=== PATIENT | male | born 1995 | race African-American/Black ===

== ENCOUNTER 2024-03-25 11:56 | Emergency (ER) | payer SELFPAY ==
--- NOTE | ~2024-03-25 | XR_ITS ---
XR chest 1V portable Ordering provider: Lauri Paige MD History: 28 years Male with . Dysnea . Comparison: None. FINDINGS: MEDIASTINUM: The cardiac silhouette is not enlarged. LUNGS: No infiltrates, effusions or pneumothorax. OTHER: No free air under the diaphragm. IMPRESSION: No acute cardiopulmonary pathology. Reviewed, dictated and finalized at location A.
[2024-03-25 12:01] VITALS: BP 138/74; PULSE 107; RESP 20; TEMP 36.7; O2SAT 100
[2024-03-25] MEDS: FAMOTIDINE 20 MG/2 ML VIAL IV PUSH (13:24)
[2024-03-25] MEDS: MAG HYDROX/AL HYDROX/SIMETH 30 ML UDC PO (13:24)
[2024-03-25 13:32] LABS: Basophils Absolute Auto 0.1 K/mm3 (0.0-0.1); Basophils Percent Auto 0.4 % (0.2-1.2); Eosinophils Percent Auto 0.2 % (0-4.4); Hemoglobin 13.9 g/dL (14.0-18.0); Immature Granulocyte Absolute 0.06 K/mm3 (0.00-0.031); Immature Granulocyte Percent A 0.4 % (0-0.5); Lymphocytes Absolute Auto 1.71 K/mm3 (0.9-3.2); Lymphocytes Percent Auto 12.5 % (18.3-44.2); Mean Corpuscular HGB Conc 33.9 g/dl (32-36); Mean Corpuscular Hemoglobin 26.9 pg (26-34); Mean Corpuscular Volume 79.5 fl (80-100); Mean Platelet Volume 10.4 fl (7.4-10.4); Monocytes Absolute Auto 1.4 K/mm3 (0.1-0.6); Neutrophils Absolute Auto 10.5 K/mm3 (1.3-6.7); Neutrophils Percent Auto 76.5 % (45.5-73.1); Platelet Count Result 210 k/mm3 (150-375); Red Blood Count 5.16 M/mm3 (4.6-6.20); Red Cell Distribution Width 13.6 % (11.5-14.5); White Blood Count 13.7 K/mm3 (4.5-10.0)
[2024-03-25 13:33] LABS: Alanine Aminotransferase 21 U/L (6-50); Albumin Level 4.6 g/dL (3.5-5.1); Alkaline Phosphatase 57 U/L (38-126); Anion Gap 7 mmol/L (4-12); Aspartate Amino Transferase 27 U/L (17-59); Bilirubin,Total 1.4 mg/dL (0.2-1.3); Blood Urea Nitrogen 12 mg/dL (9-20); Calcium 9.5 mg/dL (8.4-10.2); Carbon Dioxide 29 mmol/L (22-30); Chloride 101 mmol/L (98-107); Estimated CRCL calculation 97 ml/min; Estimated Glomerular Filt Rate > 60; Glucose 96 mg/dL (65-110); Lipase 30 U/L (23-300); Potassium 3.6 mmol/L (3.4-5.0); Sodium 137 mmol/L (137-145)
--- NOTE | 2024-03-25 13:47 | ED.GENADULT ---
HPI - General Adult General Chief complaint: Abdominal Pain Stated complaint: dan/abd pain Time Seen by Provider: 03/25/24 12:34 History of Present Illness HPI narrative: This is a 28-year-old male presenting ED with epigastric pain. The patient has daily epigastric pain in the morning that improves after he eats. This morning while driving to work would not anemia. He started develop is normal epigastric pain is worse than usual. He then became very anxious and started having trouble breathing and tingling in his hands and feet. That time he pulled over called an ambulance and was brought to the hospital. Currently the patient is asymptomatic. Patient states he thinks that he had a panic attack. Patient is declining any medication for anxiolysis. Related Data Allergies Allergy/AdvReac Type Severity Reaction Status Date / Time No Known Allergies Allergy Verified 03/25/24 13:16 Exam Narrative: APPEARANCE: No apparent distress. Head: atraumatic. EYES: EOMI, NOSE: Atraumatic NECK: Trachea midline RESPIRATORY: No increased rate of breathing clear auscultation CARDIOVASCULAR: RRR, ABDOMINAL: Non-distended soft nontender no guarding or rebound MUSCULOSKELETAl: No obvious deformities NEURO: Alert. Moving 4/4 extremities SKIN:: Warm, dry. Normal color PSYCHIATRIC: Normal affect Course Vital Signs Vital signs: Vital Signs Temperature 98.1 F 03/25/24 12:01 Pulse Rate 107 H 03/25/24 12:01 Respiratory Rate 20 03/25/24 12:01 Blood Pressure 138/74 03/25/24 12:01 Pulse Oximetry 100 03/25/24 12:01 Oxygen Delivery Room Air 03/25/24 12:01 Temperature 98.1 F 03/25/24 12:01 Pulse Rate 107 H 03/25/24 12:01 Respiratory Rate 20 03/25/24 12:01 Blood Pressure 138/74 03/25/24 12:01 Pulse Oximetry 100 03/25/24 12:01 Oxygen Delivery Room Air 03/25/24 12:01 Medical Decision Making [facility] Narrative Medical decision making narrative: -Course: 28-year-old male presenting with chronic epigastric pain. The epigastric pain is most consistent with gastritis. Additionally I agree with the patient that I do believe that he had a panic attack. On my evaluation he is resting comfortably with no symptoms. Minor increase in white blood cell count but no concern for any infectious process. Likely a stress reaction patient was monitored for some time with no change in his symptoms. He is comfortable going home. Patient be discharged on a course of Pepcid and given primary care follow-up. 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 Likely stress reaction. His laboratory studies unremarkable. Independent EKG interpretation: Rhythm [sinus], Rate [83], [place] -[normal], [place] -[normal], QRS [narrow], QTC [normal], T waves -[negative for concerning inversions], ST Segments - [Negative for concerning elevations] Final interpretations: Benign early repol -Interventions: Maalox, Pepcid -Shared decision making / Disposition: Discharged -RX absent Vital Signs Vital Signs: Vital Signs Temperature 98.1 F 03/25/24 12:01 Pulse Rate 107 H 03/25/24 12:01 Respiratory Rate 20 03/25/24 12:01 Blood Pressure 138/74 03/25/24 12:01 Pulse Oximetry 100 03/25/24 12:01 Oxygen Delivery Room Air 03/25/24 12:01 Temperature 98.1 F 03/25/24 12:01 Pulse Rate 107 H 03/25/24 12:01 Respiratory Rate 20 03/25/24 12:01 Blood Pressure 138/74 03/25/24 12:01 Pulse Oximetry 100 03/25/24 12:01 Oxygen Delivery Room Air 03/25/24 12:01 Lab Data 03/25/24 13:14 03/25/24 13:14 Labs: Lab Results 03/25/24 Range/Units 13:14 WBC 13.7 H (4.5-10.0) K/mm3 RBC 5.16 (4.6-6.20) M/mm3 Hgb 13.9 L (14.0-18.0) g/dL Hct 41.
--- NOTE | 2024-03-25 13:54 | ECG_ITS ---
Test Date: 2024-03-25 14:14:46 Measurements Intervals [place] Rate: 83 P: 75 MT: 175 QRS: 99 QRSD: 90 T: 40 QT: 326 QTc: 383 Interpretive Statements SINUS RHYTHM RIGHT AXIS DEVIATION DELAYED PRECORDIAL R/S TRANSITION NONSPECIFIC ST ELEVATION IN ANTERIOR LEADS BORDERLINE ECG No previous ECG available for comparison Electronically Signed On 03-25-2024 17:24:21 CDT by Jagdeep Saenz D.O.
[2024-03-25 15:40] VITALS: BP 133/82; PULSE 74; RESP 17; O2SAT 100
== END 2024-03-25 15:43 | disposition home or self-care (01) ==
PROVIDERS: Emergency Provider Emergency Medicine
DX: K21.9 Gastro-esophageal reflux disease without esophagitis (principal)
CPT/HCPCS: 36415; 71045; 80053; 83690; 85025; 93005; 96374; 99284; A9270